=== PATIENT | male | born 1980 | race Caucasian/White ===

== ENCOUNTER 2020-11-23 20:55 | Emergency (ER) | payer SELFPAY ==
[~2020-11-23] VITALS: Ht 177.8 cm; Wt 68.0 kg
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
[2020-11-23] MEDS ORDERED: MORPHINE SULFATE INJ 4 MG/ML DISP.SYRIN ONE (22:20)
[2020-11-23] MEDS ORDERED: IV NS 0.9% 1,000 ML BAG IV ONE (22:30)
[2020-11-23] MEDS ORDERED: MORPHINE SULFATE INJ 2 MG/ML DISP.SYRIN IV ONE (22:30)
[2020-11-23 22:32] LABS: BASOPHILS % (AUTO) 0.3 % (0.0-2.0); EOSINOPHILS % (AUTO) 0.2 % (0.0-6.0); HEMATOCRIT 42 % (39-51); HEMOGLOBIN 14.6 g/dL (13.5-17.5); LYMPHOCYTES # (AUTO) 0.3 K/uL (0.8-4.8); LYMPHOCYTES % (AUTO) 3.7 % (20.0-44.0); MEAN CORPUSCULAR HGB CONC 35 g/dl (31.0-36.0); MEAN CORPUSCULAR VOLUME 88 fL (80-96); MONOCYTES # (AUTO) 0.3 K/uL (0.1-1.30); MONOCYTES % (AUTO) 3.2 % (2.0-12.0); NEUTROPHILS # (AUTO) 8.7 K/uL (1.8-8.9); NEUTROPHILS % (AUTO) 92.6 % (43.0-81.0); PLATELET COUNT (AUTO) 170 K/uL (150-450); RED BLOOD CELL COUNT(AUTO) 4.74 MIL/uL (4.5-6.0); WHITE BLOOD COUNT (AUTO) 9.4 K/uL (4.3-11.0)
[2020-11-23 22:41] LABS: CALCIUM, SERUM 9.5 mg/dL (8.5-10.1); POTASSIUM 3.8 mmol/L (3.5-5.1)
[2020-11-23] MEDS ORDERED: IV NS 0.9% 250 ML IV ONE (22:52)
[2020-11-23] MEDS ORDERED: IOHEXOL-300 100 ML VIAL IV ONE (22:52)
[2020-11-23] MEDS ORDERED: CT SWABBABLE VALVE TRANS SET 1 EA INFUS.SET MC ONE (22:52)
--- NOTE | 2020-11-23 23:04 | NUR ---
BROUGHT TO CT AND BACK
[2020-11-23] MEDS ORDERED: DICY10CA13 PO (23:48)
--- NOTE | 2020-11-24 00:01 | NUR ---
IV removed. Catheter intact and site benign. Pressure and 4x4 applied to site. No bleeding noted. Patient discharged to home in stable condition. Written and verbal after care instructions given. Patient verbalizes understanding of instruction and RX. Pt ambulated out of ED. VSS.
[2020-11-24 00:25] VITALS: BP 115/75
[2020-11-24 01:12] LABS: BAND % (MANUAL) 4 % (0.0-5.0); LYMPHOCYTES % (MANUAL) 3 % (16-48); MONOCYTES % (MANUAL) 3 % (0-11.0); NEUTROPHILS % (MANUAL) 90 (42-76)
== END 2020-11-24 00:26 | disposition home or self-care (01) ==
LOC: ER 20:55
DX: R10.31 Right lower quadrant pain (principal); R10.84 Generalized abdominal pain
CPT/HCPCS: 36415; 74177; 80048; 85007; 85025; 96361; 96374; 99285; J2270; J7030; J7050; Q9967